=== PATIENT | female | born 1965 | race American Indian/Alaskan Native ===

== ENCOUNTER 2018-01-09 15:29 | Inpatient (IN) | payer MEDICAID ==
[2018-01-09] MEDS ORDERED: TYLENOL PO PRN (18:23)
[2018-01-09] MEDS ORDERED: PROVENTIL IH PRN (18:23)
[2018-01-09] MEDS ORDERED: DULCOLAX PR PRN (18:23)
[2018-01-09] MEDS ORDERED: ZOFRAN IV PRN (18:23)
[2018-01-09] MEDS ORDERED: MILK OF MAGNESIA PO PRN (18:23)
--- NOTE | 2018-01-09 18:23 | History and Physical Report ---
History of Present Illness Date of admission: 01/09/18 18:20 Chief complaint: Im swollen, and im short of breath History of present illness: 52 YO Female with Systolic CHF presents admitted directly to telemetry at the request of her Test Preparer. Pt states that she has experienced shortness of breath and edema to her lower extremities for the past 4 days with worsening symptoms over the past 2 days. Pt was seen in her cardiologists office and found to have symptoms consistent with acute chf decompensation and respiratory failure. Pt acknowledges orthopnea/PND, noncompliance with diet. Pt denies fever , chills, CP, Palpitations, NVD, Syncope, trauma, productive cough, BRBPR, or recent ill contacts. Pt seen upon arrival. No reported nursing events. Past History Past Medical History: heart failure Past Surgical History: No surgical history, Other (reviewed) Social history: single, smoking. denies: alcohol abuse, prescription drug abuse Family history: CAD, hypertension Medications and Allergies Allergies Allergy/AdvReac Type Severity Reaction Status Date / Time No Known Allergies Allergy Verified 01/09/18 15:50 Home Medications Medication Instructions Recorded Confirmed Last Taken Type Adult Low Dose Aspirin EC 81 mg PO DAILY 01/09/18 01/09/18 1 Day Ago History ~01/08/18 81 mg Benztropine 2 mg PO BID 01/09/18 01/09/18 1 Day Ago History ~01/08/18 2mg Coreg 3.125 mg PO BID 01/09/18 01/09/18 1 Day Ago History ~01/08/18 3.125 Furosemide 20 mg PO DAILY 01/09/18 01/09/18 1 Day Ago History ~01/08/18 20 Haloperidol 5 mg 01/09/18 1 Day Ago History ~01/08/18 5mg Lisinopril 10 mg PO DAILY 01/09/18 01/09/18 1 Day Ago History ~01/08/18 10mg SEROquel 400 mg PO QHS 01/09/18 01/09/18 1 Day Ago History ~01/08/18 400 mg Active Meds: Active Medications Furosemide (Lasix) 40 mg IV 0600,1800 DINA Review of Systems Constitutional: no weight loss, no fever, no chills, no sweats Ears, nose, mouth and throat: no ear pain, no ear discharge, no tinnitis, no decreased hearing, no nose pain, no nasal congestion Breasts: no change in shape, no swelling, no mass Cardiovascular: orthopnea, shortness of breath, paroxysmal nocturnal dyspnea, no chest pain Respiratory: no cough, no cough with sputum, no excessive sputum, no hemoptysis Gastrointestinal: no nausea, no vomiting, no diarrhea Genitourinary Female: no pelvic pain, no flank pain, no menorrhagia, no dysuria , no urinary frequency, no urgency, no stress incontinence Rectal: no pain, no incontinence, no bleeding Musculoskeletal: no neck stiffness, no neck pain, no shooting arm pain, no arm numbness/tingling, no low back pain Integumentary: no rash, no pruritis, no redness, no sores, no wounds, no jaundice Neurological: no head injury, no transient paralysis, no paralysis Psychiatric: no anxiety, no memory loss, no change in sleep habits, no sleep disturbances, no insomnia Endocrine: no cold intolerance, no heat intolerance, no polyphagia, no excessive thirst Hematologic/Lymphatic: no easy bruising, no easy bleeding, no lymphadenopathy, no lymphedema Allergic/Immunologic: no urticaria, no allergic rhinitis, no persistent infections Exam - Constitutional General appearance: Present: mild distress - EENT Eyes: Present: PERRL ENT: hearing intact, clear oral mucosa - Neck Neck: Present: supple, normal ROM - Respiratory Respiratory effort: labored Respiratory: bilateral: diminished, wheezing - Cardiovascular Heart Sounds: Present: S1 & S2. Absent: rub, click - Extremities Extremities: pulses symmetrical, No edema Extremity abnormal: edema Peripheral Pulses: within normal limits - Abdominal General gastrointestinal: Present: soft, non-tender, non-distended, normal bowel sounds Female genitourinary: Present: normal - Integumentary Integumentary: Present: clear, warm, dry - Musculoskeletal Musculoskeletal: gait normal, strength equal bilaterally - Psychiatric Psychiatric: appropriate mood/affect, intact judgment & insight - Neurologic Neurologic: CNII-XII intact, moves all extremities Results - Labs CBC & Chem 7: 01/09/18 20:54 01/09/18 20:59 Assessment and Plan - Patient Problems (1) CHF (congestive heart failure) Current Visit: Yes Status: Suspected Qualifiers: Congestive heart failure type: systolic Congestive heart failure chronicity : acute Qualified Code(s): I50.21 - Acute systolic (congestive) heart failure Plan to address problem: Serial cardiac enzymes, ekg, telemetry, Diuresis, daily weight, supplemental oxygen, thyroid panel, monitor uop q shift, low sodium diet, (2) Acute respiratory failure Current Visit: Yes Status: Acute Qualifiers: Respiratory failure complication: hypoxia Qualified Code(s): J96.01 - Acute respiratory failure with hypoxia Plan to address problem: supplemental oxygen, nebulizer therapy, supportive care, D dimer, CTA chest, NIPPV as clinically indicated, (3) DVT prophylaxis Current Visit: Yes Status: Acute
[2018-01-09] MEDS ORDERED: SODIUM CHLORIDE FLUSH SYRINGE 10 ML IV PRN (18:26)
--- NOTE | 2018-01-09 19:53 | XRay Report ---
FINAL REPORT EXAM: XR CHEST 1V AP HISTORY: chf TECHNIQUE: AP portable view of the chest PRIORS: None. FINDINGS: Lines, tubes, and devices: N/A Lungs and pleura: Trachea is normal in position. Lungs are clear of infiltrate, pleural effusion, vascular congestion, or pneumothorax. Cardiomediastinal silhouette: Heart is moderately enlarged.. Other: Bony structures are intact. IMPRESSION: No acute cardiopulmonary process seen.
[2018-01-09] MEDS: LASIX IV SCH (20:30)
--- NOTE | 2018-01-09 20:53 | History and Physical Report ---
History of Present Illness Date of admission: 01/09/18 18:20 Medications and Allergies Allergies Allergy/AdvReac Type Severity Reaction Status Date / Time No Known Allergies Allergy Verified 01/09/18 15:50 Home Medications Medication Instructions Recorded Confirmed Last Taken Type Adult Low Dose Aspirin EC 81 mg PO DAILY 01/09/18 01/09/18 1 Day Ago History ~01/08/18 81 mg Benztropine 2 mg PO BID 01/09/18 01/09/18 1 Day Ago History ~01/08/18 2mg Coreg 3.125 mg PO BID 01/09/18 01/09/18 1 Day Ago History ~01/08/18 3.125 Furosemide 20 mg PO DAILY 01/09/18 01/09/18 1 Day Ago History ~01/08/18 20 Haloperidol 5 mg 01/09/18 1 Day Ago History ~01/08/18 5mg Lisinopril 10 mg PO DAILY 01/09/18 01/09/18 1 Day Ago History ~01/08/18 10mg SEROquel 400 mg PO QHS 01/09/18 01/09/18 1 Day Ago History ~01/08/18 400 mg Active Meds: Active Medications Acetaminophen (Tylenol) 650 mg PO Q4H PRN PRN Reason: Pain MILD(1-3)/Fever >100.5/ANTON Albuterol (Proventil) 2.5 mg IH Q3HRT PRN PRN Reason: Shortness Of Breath Bisacodyl (Dulcolax) 10 mg [place] QDAY PRN PRN Reason: Constipation unrelieved by MOM Furosemide (Lasix) 40 mg IV 0600,1800 DINA Magnesium Hydroxide (Milk Of Magnesia) 30 ml PO Q4H PRN PRN Reason: Constipation Ondansetron HCl (Zofran) 4 mg IV Q8H PRN PRN Reason: N/V unrelieved by Reglan Sodium Chloride (Sodium Chloride Flush Syringe 10 Ml) 10 ml IV PRN PRN PRN Reason: LINE FLUSH Exam - Constitutional Vitals: Temp Pulse Resp BP Pulse Ox 98.5 F 94 H 18 125/95 93 01/09/18 19:16 01/09/18 19:16 01/09/18 19:16 01/09/18 19:16 01/09/18 19:16
[2018-01-09 21:33] LABS: Basophils % (Auto) 0.3 % (0.0-1.8); Eosinophils # (Auto) 0.1 K/mm3 (0.0-0.4); Eosinophils % (Auto) 0.8 % (0.0-4.3); Hematocrit 36.4 % (30.3-42.9); Hemoglobin 11.4 gm/dl (10.1-14.3); Lymphocytes # (Auto) 2.3 K/mm3 (1.2-5.4); Mean Corpuscular HGB Conc 31 % (30-34); Mean Corpuscular Hemoglobin 27 pg (28-32); Mean Corpuscular Volume 85 fl (79-97); Platelet Count 449 K/mm3 (140-440); Red Blood Count 4.29 M/mm3 (3.65-5.03); Red Cell Distribution Width 18.4 % (13.2-15.2)
[2018-01-09 21:37] LABS: BUN/Creatinine Ratio 15; Blood Urea Nitrogen 12 mg/dL (7-17); Calcium 8.1 mg/dL (8.4-10.2); Chol/HDL Ratio 5.57 %; HDL Cholesterol 19 mg/dL (40-59); Hemolysis Index 2; LDL Cholesterol,Direct 68 mg/dL (50-130)
[2018-01-10] MEDS: LASIX IV SCH ×2 (06:50→18:22)
[2018-01-10] MEDS ORDERED: NACL ONE (08:41)
--- NOTE | 2018-01-10 09:29 | Cat Scan Report ---
CTA CHEST: HISTORY: Dyspnea. COMPARISON: none. TECHNIQUE: Helical CT in 1.25mm intervals following IV contrast. Pulmonary embolus protocol. Sagittal and coronal reformatted images. Rotational MIP images. FINDINGS: Contrast bolus is satisfactory. No pulmonary embolus is identified. Thyroid gland: Normal. Tracheobronchial tree: Normal. Esophagus: Normal. Heart: Mild to moderate four-chamber cardiac enlargement is identified. Pericardium: Normal. Mediastinum: Borderline mediastinal lymph nodes are identified in the AP window, precarinal and bilateral hilar chains. These are probably reactive in nature. Lung Diaz: Moderate centrilobular emphysematous changes in the upper lung zones. Mild hypoventilatory changes in the lower lobes. No obvious mass or pneumonia. Pleural Spaces: Trace bilateral pleural effusions. Musculoskeletal: Within normal limits. IMPRESSION: No evidence for pulmonary embolus. Findings compatible with mild CHF. Emphysematous changes.
--- NOTE | 2018-01-10 12:31 | Consultation ---
History of Present Illness Consult date: 01/10/18 Requesting physician: GAGE CROUCH Consult reason: congestive heart failure History of present illness: The patient is followed by Dr. Wilson in our office. She has a history of nonischemic cardiomyopathy with an ejection fraction of 20% on echocardiogram performed in April 2017. She currently has a life vest. She presents with a three-month history of progressive dyspnea. She has chronic orthopnea. Since admission, she has demonstrated brief runs of nonsustained VT on the monitor. Past History Past Medical History: heart failure (chronic combined systolic and diastolic), other (severe nonischemic cardiomyopathy with an ejection fraction of 20% in April 2017, schizophrenia) Past Surgical History: No surgical history Social history: single, smoking. denies: alcohol abuse, prescription drug abuse Family history: CAD, hypertension Medications and Allergies Allergies Allergy/AdvReac Type Severity Reaction Status Date / Time No Known Allergies Allergy Verified 01/09/18 15:50 Home Medications Medication Instructions Recorded Confirmed Last Taken Type Aspirin [Adult Low Dose Aspirin EC] 81 mg PO DAILY 01/09/18 01/10/18 1 Day Ago History ~01/08/18 81 mg Benztropine [Cogentin] 2 mg PO BID 01/09/18 01/09/18 1 Day Ago History ~01/08/18 2mg Carvedilol [Coreg] 3.125 mg PO BID 01/09/18 01/09/18 1 Day Ago History ~01/08/18 3.125 Furosemide [Lasix] 20 mg PO DAILY 01/09/18 01/10/18 1 Day Ago History ~01/08/18 20 Haloperidol [Haldol] 5 mg PO BID 01/09/18 01/10/18 1 Day Ago History ~01/08/18 5mg Lisinopril [Zestril] 10 mg PO DAILY 01/09/18 01/10/18 1 Day Ago History ~01/08/18 10mg Quetiapine Fumarate [Seroquel] 400 mg PO QHS 01/09/18 01/10/18 1 Day Ago History ~01/08/18 400 mg Active Meds: Active Medications Acetaminophen (Tylenol) 650 mg PO Q4H PRN PRN Reason: Pain MILD(1-3)/Fever >100.5/ANTON Albuterol (Proventil) 2.5 mg IH Q3HRT PRN PRN Reason: Shortness Of Breath Last Admin: 01/09/18 21:31 Dose: 2.5 mg Bisacodyl (Dulcolax) 10 mg [place] QDAY PRN PRN Reason: Constipation unrelieved by MOM Furosemide (Lasix) 40 mg IV 0600,1800 DINA Last Admin: 01/10/18 06:50 Dose: 40 mg Magnesium Hydroxide (Milk Of Magnesia) 30 ml PO Q4H PRN PRN Reason: Constipation Ondansetron HCl (Zofran) 4 mg IV Q8H PRN PRN Reason: N/V unrelieved by Reglan Sodium Chloride (Sodium Chloride Flush Syringe 10 Ml) 10 ml IV PRN PRN PRN Reason: LINE FLUSH Review of Systems Constitutional: no fever, no chills Ears, nose, mouth and throat: no ear pain, no ear discharge, no sore throat Cardiovascular: orthopnea, edema, shortness of breath, dyspnea on exertion, no chest pain, no palpitations, no syncope, no lightheadedness Respiratory: shortness of breath, dyspnea on exertion, no cough, no hemoptysis Gastrointestinal: no abdominal pain, no nausea, no vomiting, no diarrhea Genitourinary Female: no dysuria, no urinary frequency Rectal: no pain, no bleeding Musculoskeletal: no neck stiffness, no neck pain, no myalgias Integumentary: no rash, no pruritis Neurological: no weakness, no parathesias, no numbness, no tingling, no headaches Endocrine: no cold intolerance, no heat intolerance Hematologic/Lymphatic: no easy bruising, no easy bleeding Allergic/Immunologic: no urticaria, no wheezing Physical Examination Vital Signs Last Vital Signs Temp 98.1 F 01/09/18 23:10 Pulse 88 01/10/18 10:00 Resp 19 01/10/18 08:50 BP 115/75 01/09/18 23:10 Pulse Ox 97 01/10/18 10:00 General appearance: no acute distress HEENT: Positive: EOMI, Normocephaly, Mucus Membranes Moist Neck: Positive: neck supple, trachea midline, JVD/HJR (elevated) Cardiac: Positive: Reg Rate and Rhythm, S1/S2 Lungs: Positive: Decreased Breath Sounds (at bases) Neuro: Positive: Grossly Intact Abdomen: Positive: Soft, Active Bowel Sounds. Negative: Tender Skin: Positive: Clear. Negative: Rash Musculoskeletal: Normal Range of Motion Extremities: Present: +3 Edema (pitting bilateral leg) Results 01/09/18 20:54 01/09/18 20:59 Lipids 01/09/18 Range/Units 20:59 Triglycerides 98 (2-149) mg/dL Cholesterol 106 (50-199) mg/dL HDL Cholesterol 19 L (40-59) mg/dL Cholesterol/HDL Ratio 5.57 % CBC 01/09/18 Range/Units 20:54 WBC 8.7 (4.5-11.0) K/mm3 RBC 4.29 (3.65-5.03) M/mm3 Hgb 11.4 (10.1-14.3) gm/dl Hct 36.4 (30.3-42.9) % Plt Count 449 H (140-440) K/mm3 Lymph # 2.3 (1.2-5.4) K/mm3 [place] # 1.0 H (0.0-0.8) K/mm3 Eos # 0.1 (0.0-0.4) K/mm3 Baso # 0.0 (0.0-0.1) K/mm3 Comprehensive Metabolic Panel 01/09/18 Range/Units 20:59 Sodium 137 (137-145) mmol/L Potassium 3.6 (3.6-5.0) mmol/L Chloride 94.1 L (98-107) mmol/L Carbon Dioxide 27 (22-30) mmol/L BUN 12 (7-17) mg/dL Creatinine 0.8 (0.7-1.2) mg/dL Glucose 164 H (65-100) mg/dL Calcium 8.1 L (8.4-10.2) mg/dL - Imaging and Cardiology EKG: image reviewed EKG interpretations - Telemetry EKG Rhythm: Sinus Rhythm - EKG Sinus rhythms and dysrhythmias: sinus rhythm Assessment and Plan Initiate IV diuretics, Coreg and lisinopril. - Patient Problems (1) Acute on chronic combined systolic and diastolic congestive heart failure Current Visit: Yes Status: Acute (2) Nonischemic cardiomyopathy Current Visit: Yes Status: Chronic (3) Nonsustained ventricular tachycardia Current Visit: Yes Status: Acute (4) Hypertension Current Visit: Yes Status: Chronic Qualifiers: Hypertension type: essential hypertension Qualified Code(s): I10 - Essential (primary) hypertension
--- NOTE | 2018-01-10 17:42 | Progress Note ---
Assessment and Plan Assessment and plan: --Acute on chronic combined systolic and diastolic congestive heart failure; Manage with IV diuretics, input output monitoring, fluid restriction, low sodium diet, Beta blockers and Moises inhibitors. Daily weights, cardiology following --History of nonsustained VT; cardiology following --Nonischemic cardiomyopathy; ejection fraction 20% Continue current anti-failure medications --Elevated d-dimer is; negative PE on CT angiogram of the chest, we will check venous Doppler to rule out DVT --Hypertension; moderate control, continue current antihypertensives and when necessary medications --History of schizophrenia; continue current management, Seroquel [place] and Hall, psych evaluation if needed --Ongoing tobacco use; smoking cessation counseling done advised nicotine patch , patient verbalized understanding --DVT prophylaxis; Lovenox --Full CODE STATUS --Closely monitor the patient and adjust management as needed Possible discharge in 1-2 days if stable Plan of care is reviewed with the patient, answered all her questions History Interval history: Patient seen and examined medical records reviewed No new events reported by the nursing staff.. Patient is on anti-failure medications , slight improvement of symptoms . Mild shortness of breath denies chest pain Alert awake oriented 3 not in acute distress Vital signs reviewed Hospitalist Physical - Constitutional Vitals: Temp Pulse Resp BP Pulse Ox 98.1 F 88 19 115/75 97 01/09/18 23:10 01/10/18 10:00 01/10/18 08:50 01/09/18 23:10 01/10/18 10:00 General appearance: Present: no acute distress, well-nourished - EENT Eyes: Present: PERRL, EOM intact - Neck Neck: Present: supple, normal ROM - Respiratory Respiratory effort: normal Respiratory: bilateral: diminished, rales, negative: rhonchi, wheezing - Cardiovascular Rhythm: regular Heart Sounds: Present: S1 & S2 - Extremities Extremities: no ischemia Extremity abnormal: edema - Abdominal General gastrointestinal: soft, non-tender, non-distended, normal bowel sounds - Integumentary Integumentary: Present: clear, warm - Psychiatric Psychiatric: appropriate mood/affect, cooperative - Neurologic Neurologic: CNII-XII intact, moves all extremities Results - Labs CBC & Chem 7: 01/09/18 20:54 01/09/18 20:59 Labs: Laboratory Last Values WBC 8.7 K/mm3 (4.5-11.0) 01/09/18 20:54 RBC 4.29 M/mm3 (3.65-5.03) 01/09/18 20:54 Hgb 11.4 gm/dl (10.1-14.3) 01/09/18 20:54 Hct 36.4 % (30.3-42.9) 01/09/18 20:54 MCV 85 fl (79-97) 01/09/18 20:54 MCH 27 pg (28-32) L 01/09/18 20:54 MCHC 31 % (30-34) 01/09/18 20:54 RDW 18.4 % (13.2-15.2) H 01/09/18 20:54 Plt Count 449 K/mm3 (140-440) H 01/09/18 20:54 Lymph % (Auto) 26.0 % (13.4-35.0) 01/09/18 20:54 [place] % (Auto) 11.0 % (0.0-7.3) H 01/09/18 20:54 Eos % (Auto) 0.8 % (0.0-4.3) 01/09/18 20:54 Baso % (Auto) 0.3 % (0.0-1.8) 01/09/18 20:54 Lymph # 2.3 K/mm3 (1.2-5.4) 01/09/18 20:54 [place] # 1.0 K/mm3 (0.0-0.8) H 01/09/18 20:54 Eos # 0.1 K/mm3 (0.0-0.4) 01/09/18 20:54 Baso # 0.0 K/mm3 (0.0-0.1) 01/09/18 20:54 Seg Neutrophils % 61.9 % (40.0-70.0) 01/09/18 20:54 Seg Neutrophils # 5.4 K/mm3 (1.8-7.7) 01/09/18 20:54 D-Dimer 639.57 ng/mlDDU (0-234) H 01/09/18 20:59 Sodium 137 mmol/L (137-145) 01/09/18 20:59 Potassium 3.6 mmol/L (3.6-5.0) 01/09/18 20:59 Chloride 94.1 mmol/L (98-107) L 01/09/18 20:59 Carbon Dioxide 27 mmol/L (22-30) 01/09/18 20:59 Anion Gap 20 mmol/L 01/09/18 20:59 BUN 12 mg/dL (7-17) 01/09/18 20:59 Creatinine 0.8 mg/dL (0.7-1.2) 01/09/18 20:59 Estimated GFR > 60 ml/min 01/09/18 20:59 BUN/Creatinine Ratio 15 % 01/09/18 20:59 Glucose 164 mg/dL (65-100) H 01/09/18 20:59 Calcium 8.1 mg/dL (8.4-10.2) L 01/09/18 20:59 Troponin T < 0.010 ng/mL (0.00-0.029) 01/10/18 00:15 Triglycerides 98 mg/dL (2-149) 01/09/18 20:59 Cholesterol 106 mg/dL (50-199) 01/09/18 20:59 LDL Cholesterol Direct 68 mg/dL (50-130) 01/09/18 20:59 HDL Cholesterol 19 mg/dL (40-59) L 01/09/18 20:59 Cholesterol/HDL Ratio 5.57 % 01/09/18 20:59
[2018-01-10] MEDS: COREG PO SCH (22:57)
[2018-01-11] MEDS: LASIX IV SCH (06:15)
[2018-01-11 08:29] LABS: BUN/Creatinine Ratio 11; Blood Urea Nitrogen 9 mg/dL (7-17); Calcium 8.2 mg/dL (8.4-10.2); Hemolysis Index 0
[2018-01-11] MEDS ORDERED: ZESTRIL PO SCH (10:00)
[2018-01-11] MEDS: COREG PO SCH (10:28)
--- NOTE | 2018-01-11 11:42 | Progress Note ---
Assessment and Plan She appears to have improved significantly. From a cardiac standpoint, she may be discharged home later this afternoon. Follow-up with Dr. Wilson in one week. - Patient Problems (1) Acute on chronic combined systolic and diastolic congestive heart failure Current Visit: Yes Status: Acute (2) Nonischemic cardiomyopathy Current Visit: Yes Status: Chronic (3) Nonsustained ventricular tachycardia Current Visit: Yes Status: Acute (4) Hypertension Current Visit: Yes Status: Chronic Qualifiers: Hypertension type: essential hypertension Qualified Code(s): I10 - Essential (primary) hypertension Subjective Date of service: 01/11/18 Principal diagnosis: Acute combined S&DHF, NICMP Interval history: She feels much better. She wants to go home. Objective Vital Signs Temp Pulse Resp BP BP Pulse Ox 01/11/18 10:30 89 106/72 01/11/18 10:28 89 106/72 01/11/18 10:00 100 01/11/18 08:14 98.7 F 89 20 106/72 90 01/11/18 03:53 99.0 F 86 21 107/71 97 01/11/18 00:55 99.5 F 91 H 20 115/79 98 01/10/18 22:00 18 95 01/10/18 21:00 99.0 F 91 H 22 112/68 96 01/10/18 16:36 98.6 F 88 20 114/76 99 - Physical Examination General: No Apparent Distress HEENT: Positive: EOMI, Normocephaly, Mucus Membranes Moist Neck: Positive: neck supple, trachea midline, JVD/HJR (elevated) Cardiac: Positive: Reg Rate and Rhythm, S1/S2 Neuro: Positive: Grossly Intact Abdomen: Positive: Soft, Active Bowel Sounds. Negative: Tender Skin: Positive: Clear. Negative: Rash Musculoskeletal: Normal Range of Motion Extremities: Present: edema (trace pitting bilateral leg edema) - Labs and Meds Comprehensive Metabolic Panel 01/11/18 Range/Units 06:51 Sodium 140 (137-145) mmol/L Potassium 3.7 (3.6-5.0) mmol/L Chloride 94.8 L (98-107) mmol/L Carbon Dioxide 33 H (22-30) mmol/L BUN 9 (7-17) mg/dL Creatinine 0.8 (0.7-1.2) mg/dL Glucose 135 H (65-100) mg/dL Calcium 8.2 L (8.4-10.2) mg/dL - Imaging and Cardiology EKG: image reviewed - Telemetry EKG Rhythm: Sinus Rhythm - EKG Sinus rhythms and dysrhythmias: sinus rhythm Ventricular dysrhythmias: non-sustained ventricular
[2018-01-11 14:30] VITALS: BP 101/59
--- NOTE | 2018-01-11 15:12 | Discharge Summary ---
Providers - Providers Date of Admission: 01/09/18 18:20 Date of discharge: 01/11/18 Attending physician: ANNIE PURDY 01/09/18 Consult to Cardiac Rehabilitation [CONS] Routine Reason For Exam: Phase I Primary care physician: PJ SCHULZ Hospitalization Reason for admission: worsening shortness of breath 2-3 days' duration Pertinent studies: CTA chest; no evidence of PE, findings compatible with mild CHF Chest x-ray; no acute cardiopulmonary abnormality noted Hospital course: Visit pleasant 52-year-old female patient with significant past medical history of nonischemic cardiomyopathy with ejection fraction of 20% with combined chronic systolic and diastolic dysfunction schizophrenia follow prescription for than heart erp engineer group was admitted through emergency room with worsening shortness of breath of 2-3 days' duration Patient was admitted to the hospital symptomatically managed, subsequently evaluated by erp engineer Medications were optimized, patient had brief runs of nonsustained VT on the morning Patient's medications were optimized, symptoms significantly improved Today's comfortably in bed no new complaints Denies chest pain or shortness of breath Vital signs are stable, ambulatory and tolerating oral nutrition Cleared by cardiology for discharge and follow up with him in 1 week Patient also has history of ongoing tobacco use, smoking cessation counseling done advised nicotine patch [id number] evaluation and physical examination done by me prior to discharge is unremarkable Patient is hemodynamically and clinically stable for discharge today Discharge diagnosis: --Acute on chronic combined systolic and diastolic congestive heart failure --Nonischemic cardiomyopathy ejection fraction 20% --History of nonsustained VT, on life is Vest --Elevated d-dimer as, negative PE --History of schizophrenia, blunt medications --Hypertension well controlled --Ongoing tobacco use Disposition: DC- TO HOME OR SELFCARE Time spent for discharge: 32 min Core Measure Documentation - Palliative Care Palliative Care/ Comfort Measures: Not Applicable - Core Measures Any of the following diagnoses?: heart failure - Heart Failure Discharge Requirements DUGLAS/ARB for LVSD if EF <40%: Yes Beta flores at discharge: Yes Exam - Constitutional Vitals: Temp Pulse Resp BP Pulse Ox 98.3 F 75 18 101/59 97 01/11/18 13:15 01/11/18 13:15 01/11/18 13:15 01/11/18 13:15 01/11/18 13:15 General appearance: Present: no acute distress, well-nourished - EENT Eyes: Present: PERRL, EOM intact - Neck Neck: Present: supple, normal ROM - Respiratory Respiratory effort: normal Respiratory: bilateral: diminished, rales, negative: rhonchi, wheezing - Cardiovascular Rhythm: regular Heart Sounds: Present: S1 & S2 - Extremities Extremities: no ischemia, No edema - Abdominal General gastrointestinal: Present: soft, non-tender, non-distended, normal bowel sounds - Integumentary Integumentary: Present: clear, warm - Musculoskeletal Musculoskeletal: strength equal bilaterally - Psychiatric Psychiatric: appropriate mood/affect, cooperative - Neurologic Neurologic: CNII-XII intact, moves all extremities Plan Activity: advance as tolerated Diet: low salt, other (cardiac diet) Special Instructions: smoking cessation Additional Instructions: smoking cessation advised. Advised to comply with meds and diet Follow up with: PJ SCHULZ MD [Primary Care Provider] - 7 Days AUGUSTO DE PAZ MD [Staff Physician] - 7 Days Prescriptions: Nicotine [Habitrol] 21 mg TD DAILY #30 patch
== END 2018-01-11 17:54 | disposition home or self-care (01) | DRG 291 ==
LOC: 4A 15:29 → UNDOADMIN 15:29 → 4A 18:20
PROVIDERS: ADMIT Internal Medicine; ATTEND Internal Medicine
DX: I11.0 Hypertensive heart disease with heart failure (principal); J96.00 Acute respiratory failure, unspecified whether with hypoxia or hypercapnia; I50.43 Acute on chronic combined systolic (congestive) and diastolic (congestive) heart failure; I42.9 Cardiomyopathy, unspecified; I47.2 Ventricular tachycardia; F20.9 Schizophrenia, unspecified; F17.200 Nicotine dependence, unspecified, uncomplicated; Z83.3 Family history of diabetes mellitus; Z82.49 Family history of ischemic heart disease and other diseases of the circulatory system; Z79.899 Other long term (current) drug therapy; Z79.82 Long term (current) use of aspirin; Z71.6 Tobacco abuse counseling
CPT/HCPCS: 36415; 71045; 71275; 80048; 80061; 82962; 84484; 85025; 85379; 93005; 93010; 94640; 94760; J1940; Q9967